=== PATIENT | male | born 1955 | race Caucasian/White ===

== ENCOUNTER 2019-01-01 16:30 | Inpatient (IN) | payer OTHER ==
[~2019-01-01] VITALS: Ht 182.9 cm; Wt 124.3 kg
[~2019-01-01 16:30] MED LIST: ALEVE220 MG PO; ASA81BEC PO; ASPIRIN81 M2 PO; BAYER CHEWABLE81 MG PO; CYCLOBENZAPRINE5 MG PO; FERROUS GLUCON325 M1 PO; FISH OIL 1,001000 M2 PO; FLEXERIL PO; NORCO 5-325 TA1 EACH PO; PACERONE 200 M200 M1 PO; PLAVIX 75 MG TA75 M1 PO; TOPAMAX 25 MG T25 M1 PO; TOPAMAX50 MG PO; TOPROL XL25 MG PO; WELCHOL 625 MG625 MG PO
[2019-01-01 16:34] VITALS: BP 148/74
[2019-01-01 16:54] LABS: ABSOLUTE BASOPHILS 0.1 thou/uL (0.0-0.2); ABSOLUTE EOSINOPHILS 0.1 thou/uL (0.0-0.7); ABSOLUTE LYMPHOCYTES 1.8 thou/uL (0.8-5.3); ABSOLUTE MONOCYTES 0.7 thou/uL (0.0-1.2); BASOPHILS 1.1 %; EOSINOPHILS 1.2 %; HEMATOCRIT 44.3 % (42.0-52.0); HEMOGLOBIN 15.1 gm/dL (14.0-18.0); LYMPHOCYTES 15.1 %; MCHC 34.2 g/dL (28.0-37.0); MCV 84.9 fL (80.0-100.0); MONOCYTES 5.9 %; MPV 8.3 fl. (7.2-11.1); NUCLEATED RBCS 0 /100WBC; PLATELET COUNT* 244 thou/uL (150-400); POLYS 76.7 %; RBC 5.22 mil/uL (4.50-6.00); WBC 11.7 thou/uL (4.0-11.0)
[2019-01-01 17:01] LABS: APTT 28.2 Seconds (25.0-31.3); PROTIME 10.2 Seconds (9.20-11.50)
[2019-01-01 17:07] LABS: ANION GAP 8 mmol/L (7-16); BUN 23 mg/dL (7-18); CHLORIDE 102 mmol/L (98-107); CO2 30 mmol/L (21-32); CREATININE 1.1 mg/dL (0.6-1.3); GLUCOSE 125 mg/dL (70-99); POTASSIUM 3.5 mmol/L (3.5-5.1); SODIUM 140 mmol/L (136-145); TROPONIN-I LEVEL <0.06 ng/mL (<0.06)
[2019-01-01 17:12] LABS: ALKALINE PHOSPHATASE 74 U/L (46-116); CK-MB MASS 2.3 ng/mL (<0.5-3.6); LIPASE 117 U/L (73-393); MAGNESIUM 2.1 mg/dL (1.8-2.4); NT-PRO BRAIN NAT PEPTIDE 58 pg/mL (<300); SGOT 19 U/L (15-37); SGPT 24 U/L (30-65); TOTAL BILIRUBIN 0.7 mg/dL (<0.1-1.0); TOTAL PROTEIN 7.4 g/dL (6.4-8.2)
[2019-01-01 20:46] VITALS: BP 140/84
[2019-01-01 21:00] VITALS: BP 138/77
--- NOTE | 2019-01-01 21:00 | NUR ---
RECEIVED REPORT FROM ER, ADMITTED TO 204. NO ACUTE DISTRESS. SEE ADMISSION ASSESSMENT AND HX. STATES ITS CHEST PRESSURE AND ONLY OCCURES WHEN HE IS UP AMBULATING. NO PAIN AT REST. TELEMETRY APPLIED SHOWING SR. WILL CONT TO MONITOR AND ASSIST NEEDED.
[2019-01-01] MEDS ORDERED: SYNTHROID75 MCG PO (21:59)
[2019-01-01] MEDS ORDERED: VITAMIN B-12500 MCG PO (22:00)
[2019-01-01] MEDS ORDERED: FLOMAX0.4 MG PO (22:01)
[2019-01-02] VITALS (15 sets, daily range): BP systolic 121–162; BP diastolic 69–90
--- NOTE | 2019-01-02 05:57 | NUR ---
SLEPT WELL TONIGHT. UP AD MERRY WITH STEADY GAIT. DENIES ACUTE CP, PRESSURE AFTER AMBULATION BUT SUBSIDES WITH REST. TELEMETRY CONT TO SHOW SR. NPO AFTER MN FOR POSS TEST TODAY. HS GOALS OF REST AND SAFETY ACHIEVED, HOURLY ROUNDING OBSERVED.
--- NOTE | 2019-01-02 09:38 | EKG ---
[place] [address] ELECTROCARDIOGRAM REPORT Name: HANANE MICHELE Room: [address] ADM IN [facility].#: [id number] Admission: 01/01/19 Attend Phys: Susana Barnard MD Discharge: Date of : 57 Report #: [id number] THIS REPORT FOR: //name// [facility] ED Test Date: 2019-01-01 Test Time: 16:34:36 Pat Name: HANANE MICHELE Department: Room: [facility] Gender: M Certified Fraud Examiner: : 1955 Requested By: Shorty Page Order Number: [id number] MD: Luiz eNwton Measurements Intervals [place] Rate: 69 P: 39 NM: 153 QRS: 38 QRSD: 104 T: -10 QT: 404 QTc: 433 Interpretive Statements Sinus rhythm Borderline T abnormalities, inferior leads Baseline wander in lead(s) II,aVF,V1 Compared to ECG 07/22/2014 22:51:41 no change Electronically Signed On 01-02-2019 9:38:35 NEW ACCOUNTS CLERK by Luiz Newton [email or web address] <ELECTRONICALLY SIGNED> By: Luiz Newton MD, FAC 01/02/19 0938 1634 1634 Luiz Newton MD, [facility] /EPI
--- NOTE | 2019-01-02 09:45 | EKG ---
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
--- NOTE | 2019-01-02 10:28 | NUR ---
ASSUMED PT CARE AT 0715 REPORT RECEIVED FORM NURSE PT IS AOX4 SR ON YIELD LOSS INSPECTOR NO COMPLAINT OF PAIN. PT IS UP AD MERRY TO THE RESTROOM . NPO SINCE MIDNIGHT FOR CARDIAC CONSULT. DR ALEMAN ORDERED CARDIAC CATH. PT WENT DOWN TO CARDIAC CATH AT 1030 BY BED. IV FLUID NS INFUSING AT 100CC PER HOUR. WILL CONTINUE TO CONTINUE TO MONITOR PT.
--- NOTE | 2019-01-02 11:02 | NUR ---
Pt out of room for cath, will f/u later
--- NOTE | 2019-01-02 16:37 | CARD ---
[address] [address] CARDIAC CATH REPORT Name: HANANE MICHELE Room: [address] IN [facility]#: [id number] Admission: 01/01/19 Attend Phys: Susana Barnard MD Discharge: Date of : 57 Report #: [id number] THIS REPORT FOR: //name// APPROVED REPORT Study performed: 01/02/2019 10:24:27 Patient Details Patient Status: In-Patient Room #: The patient is a 63 year-old male Event Personnel Luiz Newton Snow Technician, Deborah Schmid RN, Chicho Chan, Chelsea Cruz RTR Scrub Procedures Performed heart cath Indication Dyspnea, Chest pain Risk Factors Arterial Hypertension, Hypercholesterolemia, Coronary Artery Disease Previous Procedures/Diagnoses Previous CABGPrevious PCI, Previous AR Procedure Narrative The patient was brought electively to the Cardiac Catheterization Laboratory and was prepped and draped in a sterile manner. The right femoral was infiltrated with 1% Lidocaine subcutaneous anesthesia. A 6fr Ultimum Sheath sheath was inserted into the right femoral artery. Coronary angiography was performed using coronary diagnostic catheters. The right coronary system was accessed and visualized with a Diagnostic - JR4 catheter. The left coronary system was accessed and visualized with a Diagnostic - JL4 catheter. The left ventricle was accessed and visualized with a Diagnostic - JR4 & PIG catheter. Left ventricular/Aortic Valve gradient assessed via catheter pullback. Left ventriculogram was performed in VILLAGRAN projection. Closure device was deployed with a 6 Fr MynxGrip 6/7F. The patient tolerated the procedure well and there were no complications associated with the procedure. There was no hematoma. GRIFFITHS graft and SVG's VISUALIZED [place] [address] CARDIAC CATH REPORT Name: HANANE MICHELE Room: [address]#: [id number] Admission: 01/01/19 Attend Phys: Susana Barnard MD Discharge: Date of : 57 Report #: [id number] Intraoperative Conscious Sedation Sedation start time: 1053 Case end Time: 1128 Fentanyl 25 mcg Versed 2 mg Fluoro Time: 6.5 minutes Dose: DAP 135912 cGycm2 1693 mGy Contrast Type and Amount: Visipaque 210 ml Coronary Angiography The patient's coronary anatomy is co- dominant. [place] Artery Percent Stenosis SVG noted patent to the PDA of the distal RCA without stenosis. SVG noted that had a side to side anastomosis to a diagonal branch with a jump graft to the marginal branch, and a jump graft to the distal posterolateral branch of the circumflex artery. Patent GRIFFITHS graft to the mid LAD. Diagnostic Cath Left Main 30% mid stenosis LAD 90% ostial stenosis noted and occluded after small first diagonal branch Circumflex 90% ostial stenosis and stent in mid circumflex was chronically occluded Right Coronary 90% mid stenosis noted Left Ventriculography The left ventricular ejection fraction is estimated to be 40-45%. Left ventricular wall motion abnormalities are present. There is 1+ mitral insufficiency. moderate hypokinesis noted of the base of the inferior wall. Hemodynamics The aortic pressure is 136/65 mmHg with a mean of 70 mmHg. The left ventricular pressure is 102/10 mmHg with a mean of mmHg. The left ventricular end diastolic pressure is 13 mmHg. There was no gradient across the aortic valve upon pullback. Pullback from the left ventricle to the aorta revealed no gradient across the aortic valve. Conclusion 1. severe pilot station CAD 2. LVEF 40-45% 3. patent GRIFFITHS graft to the mid lad 4. patent SVG to the diagonal branch [place] [address] CARDIAC CATH REPORT Name: HANANE MICHELE Room: [address] IN [facility].#: [id number] Admission: 01/01/19 Attend Phys: Susana Barnard MD Discharge: Date of : 57 Report #: [id number] the marginal branch and posterolateral branch of the circumflex 5. patent SVG to the PDA branch of the distal RCA Recommendations Aggressive Medical Therapy <ELECTRONICALLY SIGNED> By: Luiz Newton MD, [facility] 01/02/19 1636 1636 1636Daalonzo Newton MD, FACC /INF
--- NOTE | 2019-01-02 18:12 | NUR ---
CAME TO PHYS ASST PT AT 1810 PT LEFT FLOOR AT 1812 ACCOMPANIED BY NURSING STAFF AND ON A WHEELCHAIR. VS POST CARDIAC CATH IS CHARTED. PT IS STABLE NO CHEST PAIN COMPLAINT. DISCHARGE INTRUCTIONS GIVEN
--- NOTE | 2019-01-03 16:57 | CON ---
[address] [address] CONSULTATION Name: HANANE MICHELE Room: [address] IN ..#: [id number] Admission: 01/01/19 Attend Phys: Susana Barnard MD Discharge: 01/02/19 Date of : 57 Report #: [id number] THIS REPORT FOR: //name// CC: Stefan Cabrales DATE OF SERVICE: 01/02/2019 CARDIOLOGY CONSULTATION HISTORY OF PRESENT ILLNESS: The patient is a 63-year-old white male who I was asked to see in the hospital today after he complained of being short of breath. The patient has an extensive past medical history. Unfortunately, not all of his records are available. He apparently presented in 2003 with an acute CA. He was sent from [place] to [facility] by helicopter and had a coronary stent placed. He is followed by Dr. Cardona for a number of years. He then presented with chest pain in 2013. He was sent from [place] to [facility] and underwent 5-vessel bypass surgery. He has been followed by my partner, Dr. Hardwick since that time. Echocardiogram last year showed an ejection fraction of 55%. He stays fairly active, working out in a gym. He actually just saw my nurse practitioner 2 weeks ago and his blood pressure was noted to be elevated. He had been on metoprolol in the past and she resumed metoprolol. He states he did well until the past few days. He notes with any exertion, he gets short of breath and chest tightness. He has had no fever, cough, edema, palpitations or syncope. He denied any noncompliance. His symptoms are relieved with rest. He has had no bleeding. He came to the Emergency Room last night, was admitted. PAST MEDICAL HISTORY: Otherwise significant for tonsillectomy. He has a history of hypertension, hyperlipidemia. MEDICATIONS: Include aspirin, Synthroid, Flomax, metoprolol. ALLERGIES: HE HAS A PREVIOUS INTOLERANCE TO STATIN DRUGS LEADING TO ELEVATED CPK AND LIVER ENZYMES. He has no other drug allergies. FAMILY HISTORY: Negative for heart disease. 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 Quit smoking years ago, rarely drinks alcohol. REVIEW OF SYSTEMS: He is a large male being 6 feet 2 inches, 267 pounds. There is no history of stroke, asthma. He has had a peptic ulcer. No liver disease, no kidney disease. He has arthritis. He actually just had back surgery last June at [place]. No chronic skin condition. [place] [address] CONSULTATION Name: HANANE MICHELE Room: [address] IN ..#: [id number] Admission: 01/01/19 Attend Phys: Susana Barnard MD Discharge: 01/02/19 Date of : 57 Report #: [id number] PHYSICAL EXAMINATION: GENERAL: Revealed a large middle-aged male lying in bed. He appeared in no acute distress. VITAL SIGNS: He had a blood pressure of 130/78, pulse 60. He is afebrile. HEENT: He is anicteric. Conjunctivae pink. Mucous members moist. NECK: Neck veins nondistended. No carotid bruits. Neck supple. CHEST: Clear to auscultation. CARDIOVASCULAR: Regular rate and rhythm. ABDOMEN: Soft, nontender. EXTREMITIES: Had no edema. SKIN: Warm and dry. NEUROLOGIC: Nonfocal. LYMPH: No adenopathy. MUSCULOSKELETAL: No joint effusion. RADIOLOGICAL DATA: His ECG on admission showed a sinus rhythm. There is no significant ST or T-wave change. His workup in the Emergency Room, he had portable chest x-ray that showed normal heart size and clear lung spicer. Carotid Doppler study back in 2013 showed no significant stenosis. LABORATORY DATA: Sodium 140, potassium 3.5. His BUN is 23, creatinine 1.1. Liver function studies were normal. Troponin 0.06. White blood cell count 11.7, hemoglobin 15.1. IMPRESSION AND RECOMMENDATIONS: 1. Unstable angina. Recommend repeat cardiac catheterization. 2. Hypertension. Recently started back on a beta josefina. 3. Hyperlipidemia. The patient cannot tolerate statin drugs. 4. Previous back surgery. <ELECTRONICALLY SIGNED> By: Luiz Newton MD, FACC 01/03/19 1657 0905 2158Daalonzo Newton MD, FACC /nt
[2019-01-19] MEDS ORDERED: ALEVE220 MG PO (14:50)
== END 2019-01-02 18:20 | disposition home or self-care (01) | DRG 287 ==
LOC: M.ERS 16:30 → M.2W 17:21 → M.TBA-ER 17:21 → M.2W 20:50
PROVIDERS: Family Medicine; ADMIT Internal Medicine
PROC: B213YZZ Fluoroscopy of Multiple Coronary Artery Bypass Grafts using Other Contrast (ICD-10-PCS; principal; 2019-01-02)
PROC: B215YZZ Fluoroscopy of Left Heart using Other Contrast (ICD-10-PCS; principal; 2019-01-02)
PROC: B211YZZ Fluoroscopy of Multiple Coronary Arteries using Other Contrast (ICD-10-PCS; principal; 2019-01-02)
PROC: 4A023N7 Measurement of Cardiac Sampling and Pressure, Left Heart, Percutaneous Approach (ICD-10-PCS; principal; 2019-01-02)
PROC: B218YZZ Fluoroscopy of Left Internal Mammary Bypass Graft using Other Contrast (ICD-10-PCS; principal; 2019-01-02)
DX: I25.110 Atherosclerotic heart disease of native coronary artery with unstable angina pectoris (principal); M19.90 Unspecified osteoarthritis, unspecified site; I48.91 Unspecified atrial fibrillation; E78.5 Hyperlipidemia, unspecified; I10 Essential (primary) hypertension; E66.01 Morbid (severe) obesity due to excess calories; I25.2 Old myocardial infarction; Z95.5 Presence of coronary angioplasty implant and graft; Z95.1 Presence of aortocoronary bypass graft; Z87.891 Personal history of nicotine dependence; Z68.37 Body mass index [BMI] 37.0-37.9, adult; Z79.899 Other long term (current) drug therapy

== ENCOUNTER 2019-02-06 06:56 | Inpatient (IN) | payer OTHER ==
[2019-01-26 09:33] LABS: ABSOLUTE BASOPHILS 0.1 thou/uL (0.0-0.2); ABSOLUTE EOSINOPHILS 0.1 thou/uL (0.0-0.7); ABSOLUTE LYMPHOCYTES 1.6 thou/uL (0.8-5.3); ABSOLUTE MONOCYTES 0.5 thou/uL (0.0-1.2); ABSOLUTE NEUTROPHILS 4.8 thou/uL (1.6-8.1); BASOPHILS 0.8 %; EOSINOPHILS 1.8 %; HEMATOCRIT 44.8 % (42.0-52.0); HEMOGLOBIN 15.1 gm/dL (14.0-18.0); LYMPHOCYTES 22.8 %; MCH 28.1 pg (26.0-34.0); MCHC 33.8 g/dL (28.0-37.0); MCV 83.3 fL (80.0-100.0); MONOCYTES 6.9 %; MPV 8.4 fl. (7.2-11.1); NUCLEATED RBCS 0 /100WBC; PLATELET COUNT* 236 thou/uL (150-400); POLYS 67.7 %; RBC 5.38 mil/uL (4.50-6.00); RDW-CV 14.4 % (10.5-14.5); WBC 7.1 thou/uL (4.0-11.0)
[2019-01-26 09:40] LABS: APTT 27.7 Seconds (25.0-31.3); PROTIME 10.2 Seconds (9.20-11.50)
[2019-01-26 09:42] LABS: ALBUMIN 3.8 g/dL (3.4-5.0); CALCIUM 8.8 mg/dL (8.5-10.1); CREATININE 1.1 mg/dL (0.6-1.3); POTASSIUM 3.5 mmol/L (3.5-5.1); TOTAL BILIRUBIN 0.7 mg/dL (<0.1-1.0); TOTAL PROTEIN 7.6 g/dL (6.4-8.2)
[2019-01-26 10:32] LABS: ESR (SEDRATE) 12 mm/hr (0-20)
[2019-01-26 22:06] LABS: GLYCOHEMOGLOBIN (HGB A1C) 5.9 % (4.8-5.6)
[~2019-02-06] VITALS: Ht 182.9 cm; Wt 117.9 kg
[~2019-02-06 06:56] MED LIST changes: +FLOMAX0.4 MG PO; +SYNTHROID75 MCG PO; +VITAMIN B-12500 MCG PO
[2019-02-06 14:38] VITALS: BP 152/80
--- NOTE | 2019-02-06 16:20 | NUR ---
PT ADMITTED TO UNIT WITH LEFT KNEE REPLACEMENT. PT IS ALERT AND ORIENTED X4 AND IS DROWSY. PT C/O NAUSEA AND VOMITED AFTER WORKING WITH THERAPY. MEDS GIVEN ORDERED. PAIN MEDS GIVEN ORDERED. PT IS X1-2 ASSIST WITH HOME WALKER AND GAIT BELT. PT RESTING IN CHAIR. PT IS ON CLEAR LIQUID DIET, ADVANCE TOLERATED DUE TO NAUSEA AND VOMITING. PT IS ON 5 LITERS O2 WITH CAPNO, SAT ARE IN MID TO HIGH 90'S. MAURICIO HOSE ON BILAT. SCD CALVES IN PLACE. PULSES 2+. ICE PACK TO KNEE. RT HAND IV SALINE LOCKED. NO FLUID ORDERS, DOCTOR NOTIFIED. ANTIBIOTICS AND BLOOD THINNER ORDERED. WEIGHT BEARING TOLERATED. FALL RISK PRECAUTIONS IN PLACE. WILL CONTINUE TO MONITOR.
--- NOTE | 2019-02-06 17:06 | NUR ---
PT REMAINED ALERT AND ORIENTED. PT RESTING IN CHAIR NAPPING. TOLERATING CLEAR LIQUID DIET AT THIS TIME. WILL ADVANCE DIET TO REGULAR. X1 ASSISTW TIH WALKER AND GAIT BELT BACK TO BED. FALL RISK PRECAUTIONS IN PLACE. HOURLY ROUNDING COMPLETED. WILL CONTINUE TO MONITOR.
[2019-02-07 01:00] VITALS: BP 128/71
[2019-02-07 04:00] VITALS: BP 124/68
[2019-02-07 04:36] LABS: CALCIUM 8.6 mg/dL (8.5-10.1); CREATININE 0.9 mg/dL (0.6-1.3); MAGNESIUM 1.7 mg/dL (1.8-2.4)
[2019-02-07 05:12] LABS: HEMOGLOBIN 12.9 gm/dL (14.0-18.0); MCH 27.2 pg (26.0-34.0); MCHC 33.2 g/dL (28.0-37.0); MCV 82.1 fL (80.0-100.0); MPV 8.4 fl. (7.2-11.1); NUCLEATED RBCS 0 /100WBC; PLATELET COUNT* 232 thou/uL (150-400); RBC 4.75 mil/uL (4.50-6.00); RDW-CV 14.3 % (10.5-14.5); WBC 18.2 thou/uL (4.0-11.0)
[2019-02-07 05:57] LABS: ABSOLUTE LYMPHOCYTES 1.5 thou/uL (0.8-5.3); ABSOLUTE MONOCYTES 0.5 thou/uL (0.0-1.2); ABSOLUTE NEUTROPHILS 16.2 thou/uL (1.6-8.1); ANISOCYTOSIS 1+; PLATELET ESTIMATE ADEQUATE; POIKILOCYTOSIS 1+
[2019-02-07 07:25] VITALS: BP 132/70
--- NOTE | 2019-02-07 08:16 | NUR ---
PATIENT HAS SLEPT OFF AND ON DURING THE NIGHT WITH SOME RESTLESSNESS. VSS ON 5L 02 VIA NASAL CANNULA AND CAPNO. MEDICATIONS GIVEN ORDERED AND CHARTED. DRESSING TO LEFT TOTAL KNEE IS C/D/I, MAURICIO HOSE, SCD'S AND ICE PACK IN PLACE. IV IN RIGHT HAND-LR @ 80ML/HR. PATIENT INSTRUCTED TO USE CALL LIGHT WHEN NEEDING ASSISTANCE. HOURLY ROUNDS MADE. WILL CONTINUE WITH PLAN OF CARE AND NURSING TO MONITOR.
[2019-02-07] MEDS ORDERED: ELIQUIS5 MG PO (14:56)
[2019-02-07] MEDS ORDERED: SENNA PLUS TAB1 EACH PO (14:56)
[2019-02-07] MEDS ORDERED: OXYCODONE HCL 55 MG PO (15:14)
[2019-02-07] MEDS ORDERED: TRAMADOL 50 MG50 MG PO (15:15)
[2019-02-07] MEDS ORDERED: CYCLOBENZAPRINE5 MG PO (15:24)
[2019-02-07 15:30] VITALS: BP 132/70
[2019-02-07 16:19] VITALS: BP 132/70
--- NOTE | 2019-02-07 16:19 | NUR ---
PT GIVEN DISCHQARGE INFORMATION, PRESCRIPTIONS, AND CARE NOTES. IV REMOVED. PT BELONGINGS GATHERED. PT LEFT VIA WHEELCHAIR WITH NURSING STAFF TO HOME WITH OUT PATIENT THERAPY. FALL RISK PRECAUTIONS IN PLACE. HOURLY ROUNDING COMPLETED.
--- NOTE | 2019-02-07 17:07 | NUR ---
RECIEVED O.T. ORDER. PER O.T. PROTOCOL DEFER TO P.T. AT THIS TIME. PLEASE ORDER FURTHER O.T. SERVICES IF NEEDED.
== END 2019-02-07 16:30 | disposition home or self-care (01) | DRG 470 ==
LOC: M.SUR 06:56 → M.TBA-CV 11:56 → M.ORTHSURG 11:56 → M.SUR 13:46 → M.ORTHSURG 14:14 → M.SUR 14:20 → M.ORTHSURG 02-07 16:30
PROVIDERS: Family Medicine; Orthopaedic Surgery; ADMIT Internal Medicine
PROC: 0SRD0J9 Replacement of Left Knee Joint with Synthetic Substitute, Cemented, Open Approach (ICD-10-PCS; principal; 2019-02-06)
DX: M17.12 Unilateral primary osteoarthritis, left knee (principal); E03.9 Hypothyroidism, unspecified; E83.42 Hypomagnesemia; I25.10 Atherosclerotic heart disease of native coronary artery without angina pectoris; N40.0 Benign prostatic hyperplasia without lower urinary tract symptoms; Z95.5 Presence of coronary angioplasty implant and graft; Z79.82 Long term (current) use of aspirin

== ENCOUNTER 2019-03-11 18:08 | Inpatient (IN) | payer OTHER ==
[~2019-03-11] VITALS: Ht 182.9 cm; Wt 117.9 kg
--- NOTE | ~2019-03-11 | CON ---
[address] [address] CONSULTATION Name: HANANE MICHELE Room: [address] IN M.R.#: [id number] Admission: 03/11/19 Attend Phys: Adolfo Schafer MD Discharge: Date of : 57 Report #: [id number] THIS REPORT FOR: //name// CC: ADOLFO Willisley DATE OF SERVICE: 03/12/2019 REQUESTING ATTENDING PHYSICIAN: Adolfo Schafer M.D. REASON FOR CONSULTATION: Right upper quadrant abdominal pain. HISTORY OF PRESENT ILLNESS: This is a 63-year-old male who had acute abdominal pain, which happened after eating a couple eggs and a toast. He denies nausea or vomiting, but the pain was so bad that it prompted him to come to the hospital. Since his ER visit, he had a CT of abdomen and pelvis, followed by ultrasound and blood work. Both CT and ultrasound showed mildly dilated gallbladder without any evidence of cholelithiasis. The ultrasound showed some sludge in the gallbladder. His liver enzymes were normal, but his bilirubin is mildly elevated to 1.5. The patient reports that this was the most severe pain he has ever had. He occasionally may have some discomfort after eating certain meals, but he usually drinks a soda pop and that makes him feel better. He denies any lower GI symptoms. He denies hematochezia, melena, change in stool habits and caliber, constipation and diarrhea. Since his acute pain, he had 2 bowel movements, which did not make the pain worse or better. He also admits that he had a colonoscopy a year ago, which was essentially unremarkable. PAST MEDICAL HISTORY: Significant for history of coronary artery disease, status post stenting; hypertension; hypothyroidism; history of back surgery; CABG and tonsillectomy. ALLERGIES: No known drug allergies. MEDICATIONS: Please refer to hospital MAR. SOCIAL HISTORY: The patient is and lives at home. Denies tobacco or alcohol use. FAMILY HISTORY: Negative for GI malignancy. PHYSICAL EXAMINATION: VITAL SIGNS: Blood pressure of 179/99, respirations 17, pulse 84 and temperature 97.5. [place] [address] CONSULTATION Name: HANANE MICHELE NEVILLE Room: [address] IN [facility]#: [id number] Admission: 03/11/19 Attend Phys: Adolfo Schafer MD Discharge: Date of : 57 Report #: [id number] LUNGS: Clear to auscultation bilaterally. CARDIOVASCULAR: Regular rate. ABDOMEN: Soft, mildly tender to palpation in the right upper quadrant. There is mild positive Lind sign. LABORATORY DATA: Labs reveal sodium of 137, potassium 3.8, BUN is 17, creatinine is 1.0 and glucose 134. Liver enzymes are within normal limits. Bilirubin is mildly elevated at 1.5. His last normal bilirubin was in 01/26/2019, WBC is 12.5 with hemoglobin of 13.6 and platelets of 275,000. IMAGING: As discussed above. ASSESSMENT AND PLAN: The patient with acute abdominal pain which was mainly in the right upper quadrant. There is some evidence of gallbladder dyskinesia as there is mild gallbladder distention with sludge per ultrasound. Bilirubin is also mildly elevated to 1.5. We will consider a CCK PIPIDA scan and also consider EGD as the patient has some dyspepsia-type symptoms, which have been intermittent, but chronic. We will make further recommendation based on these findings. The patient and are agreeable with the plan. By: 0834 [id number] Read MD /nt
--- NOTE | ~2019-03-11 | PROC ---
[address] [address] PROCEDURE REPORT Name: HANANE MICHELE Room: [address] IN M.R.#: [id number] Admission: 03/11/19 Attend Phys: David Schafer MD Discharge: 03/13/19 Date of : 57 Report #: [id number] THIS REPORT FOR: //name// For GI report, please see the Provation report in Perceptive 7 content. By: 0700Medical Records Staff JAVY /FABIENNE
[~2019-03-11 18:08] MED LIST changes: +ELIQUIS5 MG PO; +OXYCODONE HCL 55 MG PO; +SENNA PLUS TAB1 EACH PO; +TRAMADOL 50 MG50 MG PO
[2019-03-11 18:38] VITALS: BP 137/93
[2019-03-11 18:53] LABS: ABSOLUTE BASOPHILS 0.1 thou/uL (0.0-0.2); ABSOLUTE EOSINOPHILS 0.1 thou/uL (0.0-0.7); ABSOLUTE LYMPHOCYTES 2.2 thou/uL (0.8-5.3); ABSOLUTE MONOCYTES 0.7 thou/uL (0.0-1.2); ABSOLUTE NEUTROPHILS 9.4 thou/uL (1.6-8.1); EOSINOPHILS 0.8 %; HEMATOCRIT 40.3 % (42.0-52.0); HEMOGLOBIN 13.6 gm/dL (14.0-18.0); LYMPHOCYTES 17.3 %; MCH 27.4 pg (26.0-34.0); MCHC 33.7 g/dL (28.0-37.0); MCV 81.4 fL (80.0-100.0); MONOCYTES 5.8 %; MPV 8.1 fl. (7.2-11.1); NUCLEATED RBCS 0 /100WBC; PLATELET COUNT* 275 thou/uL (150-400); POLYS 75.1 %; RBC 4.95 mil/uL (4.50-6.00); RDW-CV 15.1 % (10.5-14.5); WBC 12.5 thou/uL (4.0-11.0)
[2019-03-11 19:06] LABS: CALCIUM 9.3 mg/dL (8.5-10.1); POTASSIUM 3.8 mmol/L (3.5-5.1); TOTAL BILIRUBIN 1.5 mg/dL (<0.1-1.0); TOTAL PROTEIN 7.9 g/dL (6.4-8.2)
[2019-03-11 23:18] VITALS: BP 177/93
[2019-03-11 23:30] VITALS: BP 179/99
--- NOTE | 2019-03-12 06:54 | NUR ---
PATIENT ADMITTED TO ROOM 105 AT APPROXIMATELY 2340 FROM THE ER. VSS ON RA. ALTHOUGH BP ELEVATED. PATIENT RECEIVED PAIN MEDICATION IN ER. PATIENT ORIENTED TO ROOM AND POLICIES AND FALL EDUCATION GIVEN AND FALL AGREEMENT SIGNED. ASSESSMENT CHARTED. IV IN RIGHT AC-NS @ 60ML/HR. PATIENT INSTRUCTED TO USE CALL LIGHT WHEN NEEDING ASSISTANCE. HOURLY ROUNDS MADE. WILL CONTINUE WITH PLAN OF CARE AND NURSING TO MONITOR.
[2019-03-12 08:15] VITALS: BP 164/86
--- NOTE | 2019-03-12 16:36 | NUR ---
PATIENT ALERT AND ORIENTED X 4. VITAL SIGNS STABLE ON ROOM AIR. UP AD MERRY IN ROOM. IV PATENT AND FLUIDS INFUSING PER MAR. PAIN BEING MANAGED WITH IV AND ORAL MEDICATION. DENIES NAUSEA AT THIS TIME. PATIENT TO BE NPO AFTER MIDNIGHT TONIGHT FOR PROCEDURES TOMORROW. HOURLY ROUNDS MAINTAINED THROUGHOUT THE SHIFT. CALL LIGHT WITHIN REACH. NURSING WILL CONTINUE TO MONITOR.
[2019-03-12 16:46] VITALS: BP 132/73
[2019-03-12 20:20] VITALS: BP 150/83
[2019-03-13 00:57] VITALS: BP 150/83
[2019-03-13 04:14] LABS: HEMATOCRIT 39.8 % (42.0-52.0); HEMOGLOBIN 13.4 gm/dL (14.0-18.0); MCH 27.4 pg (26.0-34.0); MCHC 33.7 g/dL (28.0-37.0); MCV 81.3 fL (80.0-100.0); MPV 8.1 fl. (7.2-11.1); RBC 4.9 mil/uL (4.50-6.00); RDW-CV 15.3 % (10.5-14.5); WBC 8.1 thou/uL (4.0-11.0)
[2019-03-13 04:45] LABS: ALBUMIN 3.7 g/dL (3.4-5.0); CREATININE 0.9 mg/dL (0.6-1.3); MAGNESIUM 2.1 mg/dL (1.8-2.4); POTASSIUM 3.6 mmol/L (3.5-5.1); TOTAL BILIRUBIN 1.4 mg/dL (<0.1-1.0); TOTAL PROTEIN 7.3 g/dL (6.4-8.2)
--- NOTE | 2019-03-13 05:46 | NUR ---
PT SLEPT FAIRLY WELL OVERNIGHT, RECEIVING PO PAIN MED FOR CO RUQ ABD PAIN WITH FAIR RELIEF. ZOFRAN GIVEN FOR NAUSEA. HAS BEEN NPO SINCE MIDNIGTH EXCEPT FOR SIP WITH MEDS UNTIL 0400 AT WHICH TIME HE RECEIVED PO PAIN MED. AM LABS DRAWN. TO HAVE PIPIDA SCAN TODAY AND EGD. EKG ORDERED FOR PRE PROCEDURE. RAC IVF INFUSING PER PUMP WITHOUT DIFFICULTY. UP AD MERRY IN ROOM. USING URINAL TO VOID OVERNIGHT. NO EMESIS OVERNIGHT. ABLE TO USE CALL LITE AND MAKE NEEDS KNOWN.
[2019-03-13 08:00] VITALS: BP 142/84
--- NOTE | 2019-03-13 10:33 | EKG ---
[place] [address] ELECTROCARDIOGRAM REPORT Name: HANANE MICHELE Room: [address] ADM IN M.R.#: [id number] Admission: 03/11/19 Attend Phys: David Schafer MD Discharge: Date of : 57 Report #: [id number] THIS REPORT FOR: //name// [facility] Test Date: 2019-03-13 Test Time: 08:07:21 Pat Name: HANANE MICHELE Department: Room: [address] Gender: M Machine Presser: : 1955 Requested By: David Schafer Order Number: [id number] MD: Luiz Newton Measurements Intervals [place] Rate: 75 P: 37 [place]: 166 QRS: 21 QRSD: 99 T: 28 QT: 407 QTc: 455 Interpretive Statements Sinus rhythm Compared to ECG 01/02/2019 00:44:02 No significant changes Electronically Signed On 03-13-2019 10:33:46 CDT by Luiz Newton [email or web address] <ELECTRONICALLY SIGNED> By: Luiz Newton MD, [facility] 03/13/19 1033 6 6 Luiz Newton MD, FAC /EPI
[2019-03-13] MEDS ORDERED: NEXIUM40 MG PO (15:51)
[2019-03-13 16:02] VITALS: BP 142/84
[2019-03-13] MEDS ORDERED: PROTONIX40 M1 PO (16:10)
[2019-03-13 16:15] VITALS: BP 136/77
[2019-03-13 16:48] VITALS: BP 142/84
[2019-03-13 17:02] VITALS: BP 142/84
--- NOTE | 2019-03-13 17:03 | NUR ---
PATIENT IS ALERT AND ORIENTED TODAY VERY PLEASANT. HAD PIPTA SCAN AND EGD DONE TODAY. LAP CHOLECYSTOCTOMY WILL BE DONE OUTPATIENT NEXT WEEK SOMETIME. DR CHAU'S OFFICE WILL CALL PATIENT TO SET UP SURGERY FOR OUTPATIENT. PRESCRIPTION CALLED INTO PHARMACY ON FILE. PATIENT IS BEING DISCHARGED TO HOME. DISCAHRGE INSTRUCTIONS GIVEN AND QUESTIONS ANSWERED FOR PATIENT AND SPOUSE. PATIENT AMBULATED OUT TO CAR WITH TO HOME.
--- NOTE | 2019-03-14 16:06 | PATH ---
[facility] [address] [place] [address] PATHOLOGY RPT PROCEDURE Name: HANANE PARRA Room: [address] IN M.R.#: [id number] Admission: 03/11/19 Date of : 57 Discharge: 03/13/19 Report #: [id number] Path Case #: [id number] [facility] Accession Number: [id number] . 01 Material submitted: . esophagus - BIOPSY OF DISTAL ESOPHAGUS R/O BARRETTS ESOPHAGUS. Modifiers: distal . 01 Clinical history: . None provided . 02 Diagnosis: Biopsy of distal esophagus: - Benign esophageal and gastric / columnar types mucosa with moderate chronic and active inflammation typical of reflux, negative for goblet cells / diagnostic Schwarz's metaplasia, granulomas and dysplasia. . (SHANTEL:iman; 03/14/2019) QL/03/14/2019 . 02 Electronically signed: . Salas Harper MD, Pathologist NPI- [id number] . 01 Gross description: . Received in formalin labeled "Hanane Parra, biopsy of distal esophagus, rule out Schwarz's esophagus," are 2 segments of atkins soft tissue measuring 0.8 x 0.5 x 0.4 cm in aggregate dimensions and ranging from 0.1 to 0.7 cm in maximum dimension. The specimen is submitted entirely in cassette A1. (TSD; 03/13/2019) TOB/TOB . 02 Pathologist provided ICD-10: K20.9 . 02 CPT . 534071 Specimen Comment: A courtesy copy of this report has been sent to Specimen Comment: [phone], , . Specimen Comment: Report sent to ,DR KIMBROUGH / DR PERALTA Performed at: 01 [facility] [address] [place] [address] [address], [place], [place] [address] MD Bethel Cheung MD Phone: [phone] Performed at: [address] [facility] [address] [place], [place] [id number] MD Salas Harper MD Phone: [phone]
== END 2019-03-13 17:04 | disposition home or self-care (01) | DRG 445 ==
LOC: M.ERS 18:08 → M.ORTHSURG 21:32 → M.TBA-ER 21:32 → M.ORTHSURG 03-12 00:43
PROVIDERS: Emergency Medicine; Internal Medicine Gastroenterology; ADMIT Internal Medicine
PROC: 0DB58ZX Excision of Esophagus, Via Natural or Artificial Opening Endoscopic, Diagnostic (ICD-10-PCS; principal; 2019-03-13)
DX: K82.8 Other specified diseases of gallbladder (principal); R65.10 Systemic inflammatory response syndrome (SIRS) of non-infectious origin without acute organ dysfunction; K29.70 Gastritis, unspecified, without bleeding; G62.9 Polyneuropathy, unspecified; I25.10 Atherosclerotic heart disease of native coronary artery without angina pectoris; E03.9 Hypothyroidism, unspecified; N18.2 Chronic kidney disease, stage 2 (mild); K21.0 Gastro-esophageal reflux disease with esophagitis; K44.9 Diaphragmatic hernia without obstruction or gangrene; I12.9 Hypertensive chronic kidney disease with stage 1 through stage 4 chronic kidney disease, or unspecified chronic kidney disease; Z95.5 Presence of coronary angioplasty implant and graft; Z95.1 Presence of aortocoronary bypass graft; Z79.82 Long term (current) use of aspirin; Z79.899 Other long term (current) drug therapy; Z88.8 Allergy status to other drugs, medicaments and biological substances

== ENCOUNTER 2019-07-22 15:07 | Emergency (ER) | payer OTHER ==
[~2019-07-22] VITALS: Ht 182.9 cm; Wt 117.9 kg
[~2019-07-22 15:07] MED LIST changes: +NEXIUM40 MG PO; +PROTONIX40 M1 PO
[2019-07-22 15:38] LABS: HEMOGLOBIN 16.7 gm/dL (14.0-18.0); MCH 28.7 pg (26.0-34.0); MCHC 34.7 g/dL (28.0-37.0); MCV 82.6 fL (80.0-100.0); MPV 8.3 fl. (7.2-11.1); NUCLEATED RBCS 0 /100WBC; PLATELET COUNT* 224 thou/uL (150-400); RBC 5.81 mil/uL (4.50-6.00); RDW-CV 14.8 % (10.5-14.5)
[2019-07-22 15:48] LABS: ANION GAP 10 mmol/L (7-16); BUN 14 mg/dL (7-18); CALCIUM 9.3 mg/dL (8.5-10.1); CHLORIDE 100 mmol/L (98-107); CO2 28 mmol/L (21-32); GLUCOSE 167 mg/dL (70-99); POTASSIUM 3.9 mmol/L (3.5-5.1); SODIUM 138 mmol/L (136-145)
[2019-07-22 15:57] LABS: ALBUMIN 4.5 g/dL (3.4-5.0); ALKALINE PHOSPHATASE 84 U/L (46-116); LIPASE 94 U/L (73-393); SGOT 21 U/L (15-37); SGPT 27 U/L (30-65); TOTAL BILIRUBIN 1.6 mg/dL (<0.1-1.0); TOTAL PROTEIN 8.2 g/dL (6.4-8.2); TROPONIN-I LEVEL <0.06 ng/mL (<0.06)
[2019-07-22 16:43] LABS: ABSOLUTE LYMPHOCYTES 0.5 thou/uL (0.8-5.3); ABSOLUTE MONOCYTES 0.6 thou/uL (0.0-1.2); ABSOLUTE NEUTROPHILS 10.9 thou/uL (1.6-8.1); PLATELET ESTIMATE ADEQUATE
[2019-07-22 17:31] LABS: URINE BILIRUBIN NEGATIVE (Negative); URINE BLOOD TRACE (Negative); URINE CLARITY CLEAR; URINE COLOR YELLOW; URINE GLUCOSE-RANDOM TRACE (Negative); URINE KETONES TRACE (Negative); URINE LEUKOCYTES-REFLEX NEGATIVE (Negative); URINE NITRITE-REFLEX NEGATIVE (Negative); URINE PROTEIN NEGATIVE (Negative); URINE UROBILINOGEN 0.2 E.U./dl (0.2-1.0)
[2019-07-22] MEDS ORDERED: ZOFRAN ODT4 MG DISSOLVE (17:49)
[2019-07-22 18:07] VITALS: BP 163/64
--- NOTE | 2019-07-23 10:48 | EKG ---
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: : 1955 Requested By: Monty Adams Order Number: [id number] MD: Severo Hardwick Measurements Intervals [place] Rate: 72 P: 33 [place]: 180 QRS: 44 QRSD: 100 T: 44 QT: 455 QTc: 499 Interpretive Statements Sinus rhythm Atrial premature complex Compared to ECG 03/13/2019 08:07:21 Atrial premature complex(es) now present Electronically Signed On 07-23-2019 10:48:15 CDT by Severo Hardwick [email or web address] <ELECTRONICALLY SIGNED> By: Severo Hardwick MD, [facility] 07/23/19 1048 1544 1544 Severo Hardwick MD, FACC /EPI
== END 2019-07-22 18:07 | disposition home or self-care (01) ==
LOC: M.ERS 15:07
PROVIDERS: Nurse Practitioner Family
DX: A08.4 Viral intestinal infection, unspecified (principal); Z88.8 Allergy status to other drugs, medicaments and biological substances; Z90.49 Acquired absence of other specified parts of digestive tract